=== PATIENT | male | born 1950 | race Caucasian/White ===

== ENCOUNTER 2023-08-17 23:24 | Inpatient (IN) | payer MEDICARE, SELFPAY ==
[2023-08-17] VITALS (11 sets, daily range): BP systolic 53–130; BP diastolic 41–75; PULSE 84–102; BMI 30.6
[2023-08-17 19:45] LABS: % Basophils 0.5 % (0-2); % Eosinophils 0.2 % (0-6); % Immature Granulocytes 0.3 % (0-0.5); % Lymphocytes 35.6 % (20.5-51.1); % Monocytes 18.9 % (1.7-9.3); % Neutrophils 44.5 % (42.2-75.2); Absolute Lymphocytes 2.1 10^3/uL (1.2-3.4); Absolute Monocytes 1.1 10^3/uL (0.1-0.6); Absolute Neutrophils 2.6 10^3/uL (1.4-6.5); Hematocrit 45.8 % (39.0-52.0); Hemoglobin 16.1 g/dL (13.0-18.0); Mean Corp Hgb Conc. 35.2 g/dL (33.0-37.0); Mean Corpuscular Hgb 30.4 pg (27.0-31.0); Mean Corpuscular Volume 86.4 fL (80.0-94.0); Mean Platelet Volume 9.1 fL (7.4-10.4); Nucleated Red Blood Cells % 0 % (-); Platelet Count 270 10^3/uL (130-400); Red Cell Dist. Width 13.8 % (11.5-14.5); White Blood Cell Count 5.9 10^3/uL (4.8-10.8)
[2023-08-17 20:03] LABS: COVID-19 Antigen Negative (Negative)
[2023-08-17] MEDS: NSS 1000 IV (20:06)
[2023-08-17 20:08] LABS: ALT (SGPT) 32 U/L (0-50); AST (SGOT) 34 U/L (17-59); Albumin 4.1 g/dl (3.5-5.0); Alkaline Phosphatase 102 U/L (38-126); Blood Urea Nitrogen 50 mg/dl (9-20); Calcium 8.5 mg/dl (8.4-10.2); Carbon Dioxide 15 mmol/L (22-30); Chloride 106 mmol/L (98-107); Estimated Creatinine Clearance 33 ml/min; Glucose 154 mg/dl (70-99); Lipase 65 U/L (23-300); Potassium 3.3 mmol/L (3.5-5.1); Sodium 134 mmol/L (135-145); Total Bilirubin 0.7 mg/dl (0.2-1.3); Total Protein 7.3 g/dl (6.3-8.2)
[2023-08-17 20:43] LABS: Troponin I 0.014 ng/ml
--- NOTE | 2023-08-17 22:11 | ED.GENMED ---
History of Present Illness
General
Chief Complaint: Breathing Problem
Source: patient and spouse
Time Seen by Provider: 08/17/23 19:31
Travel History
Have you had any contact with someone who has COVID-19?: No
Do you have any symptoms of coronavirus? Fever > 100 degrees, chills, cough, shortness of breath, sore throat, loss of taste or smell, muscle aches, or headache?: Yes
Symptoms:: SOB
History of Present Illness
History of Present Illness:
This is 73-year-old male presents feeling weak, lightheaded and short of breath with exertion. The patient admits that he started Monday night late with vomiting. He vomited throughout the night and the next day. He then progressed to diarrhea.
His vomiting has since resolved but he continues to have cramping and diarrhea. The patient states he now feels weak and short of breath when he exerts himself. Resting in bed he overall feels well with the exception of some abdominal cramping.
No melena or hematochezia. Patient does also mention that he has had some pain down his left arm. Few weeks ago he had pain in his neck but seem to go away. Now he has pain down his left arm in certain positions. He has a history of multiple
myeloma and is now scheduled for an MRI upcoming in August. No motor weakness. No chest pain.
Past History
Past History
ED Past Medical History: HTN, Hypercholesterolemia, NIDDM and Other (Multiple myeloma with bone marrow transplant)
ED Past Surgical History: Cholecystectomy and Other (Bone marrow transplant)
Social History
Tobacco: Non-smoker
Alcohol: None
Drug: None
Personal:
Living: with family
Employment: Retired
Phy Exam
Physical Exam
Physical Exam:
CONSTITUTIONAL Patient alert and oriented to person, place and time. Well-appearing. Vital signs reviewed.
HEAD atraumatic, normocephalic.
EYES eyelids normal to inspection, Extraocular muscles intact, Conjunctiva normal, Sclera normal.
NECK normal range of motion, Trachea midline, no jugular venous distention.
RESPIRATORY CHEST No respiratory distress noted, Chest expansion equal, Bilateral breath sounds clear.
CARDIOVASCULAR regular rate and rhythm, Heart sounds normal.
ABDOMEN abdomen nontender, Bowel sounds normal. No distention.
BACK normal inspection, no obvious deformities
UPPER EXTREMITY range of motion normal, Motor strength normal, no cyanosis, no edema.
LOWER EXTREMITY range of motion normal, Motor strength normal, no cyanosis, no edema.
NEURO Speech normal, No focal motor deficits, Danielle coma scale 15, Memory normal, Cranial Nerves intact to screening exam.
SKIN skin warm, dry, and normal in color.
.
Scores
Heart Failure Risk
Heart Failure Risk Score: Not Applicable
Course
Orders/Labs/Results
Orders:
Orders
08/17/23 19:04
Electrocardiogram (*1) Urgent
Reason for Study: Shortness of Breath
EKG- Treatment ONCE
08/17/23 19:34
CBC/With Diff [Complete Blood Count/With Diff] Urgent
CMP [Comprehensive Metabolic Panel] Urgent
COVID-19 Antigen Urgent
Source: Nasal Swab
Lipase Urgent
Influenza A+B Rapid Molecular Urgent
GETACHEW Source: Nasal Swab
Specimen Description:
08/17/23 19:35
CR Chest - 2 Views Urgent
Comment:
Reason For Exam: sob
08/17/23 19:51
Cervical Spine 4 or 5 Vw [CR Cervical Spine 4 Or 5 Vw] Urgent
Comment:
Reason For Exam: neck pain, h/o MM
08/17/23 20:01
0.9% Sodium Chloride 1000 ml [Nss] 1,000 ml IV BOLUS
08/17/23 20:07
Troponin I Urgent
08/17/23 22:11
STOOL [C difficile Antigen & Toxins] Urgent
GETACHEW Source: Feces/Stool
Specimen Description:
Stool Culture Urgent
GETACHEW Source: Feces/Stool
Specimen Description:
Stool For WBC Urgent
GETACHEW Source: Feces/Stool
Specimen Description:
08/17/23 22:37
0.9% Sodium Chloride 500 ml [Nss] 500 ml IV BOLUS
08/17/23 22:46
Dicyclomine [Bentyl] 20 mg PO NOW STA
Abnormal Lab Results
08/17/23
19:34
Absolute Monos (auto) 1.1 H 10^3/uL
(0.1-0.6)
Monocytes % 18.9 H %
(1.7-9.3)
Sodium 134 L mmol/L
(135-145)
Potassium 3.3 L mmol/L
(3.5-5.1)
Carbon Dioxide 15 L mmol/L
(22-30)
BUN 50 H mg/dl
(9-20)
Creatinine 2.5 H mg/dL
(0.7-1.3)
Glucose 154 H mg/dl
(70-99)
08/17/23 19:34
08/17/23 19:34
Vital Signs
Initial and Last Documented VS:
Initial Vital Signs
Temp Pulse Resp BP
98.1 F 92 20 82/56
08/17/23 18:59 08/17/23 18:59 08/17/23 18:59 08/17/23 18:59
Last Documented Vital Signs
Temp Pulse Resp BP Pulse Ox
98.1 F 80 18 114/73 97
08/17/23 18:59 08/17/23 22:15 08/17/23 22:15 08/17/23 22:00 08/17/23 22:15
MDM/Problems Addressed
MDM/Problems Addressed:
Vomiting, diarrhea, severe dehydration, acute renal failure, orthostatic hypotension
*Radiology
Radiology exam reviewed: preliminary read by ED provider (No obvious pneumonia) and radiology read reviewed
*Pulse Oximetry
Patient hypoxic: no
*EKG
Interpreted by ED Provider?: Yes
Rate: normal
Rhythm: sinus
[place]: normal axis
Ischemia: non-specific ST changes
*Independent Insurance Adjuster Interpretation
Rate: normal
Interpretation: normal
Rhythm: sinus
*Critical Care Note
Total Time (30-74mins, 75-104mins- exclusive of procedures): Not Applicable
Data Reviewed
Source: patient and spouse
Further Testing Considered But Not Given:
Consider CT of the abdomen but suspect viral source. Check stool cultures if he is able to provide
Patient Management
Discussion with other providers: Hospitalist
Escalation/DeEscalation of care consider admission/obs:
73-year-old male presents with vomiting diarrhea. Found to have acute renal failure. Clearly and severely orthostatic. Check stool cultures when he is able to provide. Continue IV fluids. Admit
ED Attending Note
-
Portions of this chart may have been created with voice recognition software.� Occasional wrong word or��sound alike� substitutions may have occurred due to the inherent limitations of voice recognition software.
Discharge Plan
Departure
Patient Disposition: Admit
Date of Disposition: 08/17/23
Time of Disposition: 22:12
Admit to: Med/Surg
Presentation/result/management discussed w/ accepting MD/DO: Hospitalist
Discharge Problem:
Severe dehydration, Acute renal failure
Prescriptions:
No Action
metoprolol succinate 100 MG tablet extended release 24 hr
100 mg PO BID
cyanocobalamin (vitamin B-12) 1,000 MCG tablet
2,500 mcg PO DAILY
cholecalciferol (vitamin D3) [Vitamin D3] 2,000 UNIT capsule
2,000 unit PO DAILY
[place] 3-6-9 1,200 MG capsule
1,200 mg PO BID
simvastatin 20 MG tablet
20 mg PO HS
valsartan 160 MG tablet
160 mg PO DAILY
insulin aspart U-100 [Novolog FlexPen U-100 Insulin] 100 unit/mL (3 mL) Insulin Pen
20 unit SC AC Qty: 0
insulin glargine [Basaglar KwikPen U-100 Insulin] 100 UNIT/ML insulin pen
44 unit SC HS
multivitamin 1 EACH tablet
1 ea PO DAILY
methimazole 5 mg Tablet
5 mg PO BID
spironolactone 25 mg Tablet
25 mg PO DAILY 30 Days Qty: 30 0RF
Eliquis 5 mg Tablet
5 mg PO BID 30 Days Qty: 60 0RF
Victoza 2-Flavio 0.6 mg/0.1 mL (18 mg/3 mL) Pen Injector
1.8 mg SC HS
pantoprazole 40 mg tablet,delayed release (DR/EC)
40 mg PO DAILY
furosemide [Lasix] 20 mg tablet
20 mg PO Q48H
Referrals:
Alan Singh MD [Family Provider] -
Interventions
Interventions:
*Risk Screen - Suicide Last Done: 08/17/23 19:30
*General Assessment Last Done: 08/17/23 18:59
*Neglect/Abuse Screening Last Done: 08/17/23 19:30
ED- Fall Risk Assessment Last Done: 08/17/23 19:30
*ED COVID-19 Vaccine History Last Done: 08/17/23 18:59
ED- Cardiac Assessment Last Done: 08/17/23 19:30
ED- Pulmonary Assessment Last Done: 08/17/23 19:30
--- NOTE | 2023-08-17 22:37 | HPS.HSE ---
Family Physician
-
Family Physician: Alan Singh
Chief Complaint
-
acute V/D
History of Present Illness
73M HX chr HFpEF, nl RFTs a/w acute V/D fpr ;ast 2 days. NEG home Covid Ag. No melena or hematochezia.
Medical History
Past Medical History
Past Medical History: Reports Arrhythmia (Prx AF ), CHF (chr HfpEF ), HTN, Hyperthyroidism and IDDM
Past Surgical History: Reports Cholecystectomy
Social History
Tobacco: Non-smoker
Alcohol: None
Personal:
Living: With Family
Family History
Family History: Not pertinent
Allergies / Home Medications
Allergies reflects when Allergies were last updated in [facility].
Home Medications with original date entered in [facility]
Allergy/Medication List:
Allergies
Allergy/AdvReac Type Severity Reaction Status Date / Time
No Known Allergies Allergy Verified 08/17/23 19:03
Home Medications
cholecalciferol (vitamin D3) 50 mcg (2,000 unit) capsule (Vitamin D3) 2,000 unit PO DAILY Supplement 06/22/17
cyanocobalamin (vitamin B-12) 1,000 mcg tablet 2,500 mcg PO DAILY Supplement 06/22/17
fish, borage, flaxseed oils-omega 3,6,9 comb no.1 1,200 mg capsule ([place] 3-6-9) 1,200 mg PO BID Supplement 06/22/17
metoprolol succinate 100 mg tablet,extended release 24 hr 100 mg PO BID Blood pressure 06/22/17
simvastatin 20 mg tablet 20 mg PO HS High cholesterol 07/30/18
insulin aspart U-100 100 unit/mL (3 mL) subcutaneous pen (Novolog FlexPen U-100 Insulin aspart) 20 unit SC AC Diabetes ##0 03/08/21
insulin glargine 100 unit/mL (3 mL) subcutaneous pen (Basaglar KwikPen U-100 Insulin) 44 unit SC HS Diabetes 03/08/21
multivitamin 1 ea PO DAILY Supplement 03/08/21
valsartan 160 mg tablet 160 mg PO DAILY Blood pressure 03/08/21
methimazole 5 mg tablet 5 mg PO BID Thyroid 04/03/22
apixaban 5 mg tablet (Eliquis) 5 mg PO BID 30 days #60 tabs 04/05/22
spironolactone 25 mg tablet 25 mg PO DAILY 30 days #30 tabs 04/05/22
liraglutide 0.6 mg/0.1 mL (18 mg/3 mL) subcutaneous pen injector (Victoza 2-Flavio) 1.8 mg SC HS 09/26/22
furosemide 20 mg tablet (Lasix) 20 mg PO Q48H 08/17/23
pantoprazole 40 mg tablet,delayed release 40 mg PO DAILY 08/17/23
Review of Systems
-
Constitutional: Reports No Symptoms
EENT: Reports No Symptoms
Respiratory: Reports No Symptoms
Cardiac: Reports No Symptoms
Abdomen/GI: Reports Vomiting and Diarrhea
: Reports No Symptoms
Musculoskeletal: Reports No Symptoms
Skin: Reports No Symptoms
Neurological: Reports No Symptoms
Endocrine: Reports No Symptoms
Hematologic/Lymphatic: Reports No Symptoms
Psych: Reports No Symptoms
Physical Exam
Vital Signs
Vital Signs
Temp Pulse Resp BP Pulse Ox
98.1 F 80 18 114/73 97
08/17/23 18:59 08/17/23 22:15 08/17/23 22:15 08/17/23 22:00 08/17/23 22:15
Physical Exam
General: Other (see below )
Laboratory Results
-
08/17/23 19:34
08/17/23 19:34
Laboratory Results
Total Bilirubin 0.7 mg/dl (0.2-1.3) 08/17/23 19:34
AST 34 U/L (17-59) 08/17/23 19:34
ALT 32 U/L (0-50) 08/17/23 19:34
Alkaline Phosphatase 102 U/L (38-126) 08/17/23 19:34
Troponin I 0.014 ng/ml 08/17/23 20:07
Lipase 65 U/L (23-300) 08/17/23 19:34
Data Reviewed
-
CT Scan: Report Reviewed by me
Medical Tests (Nuc Med, Echo, EKG etc): Report Reviewed by me
Lab Data: Labs Reviewed by me
Old Records: Reviewed
Impression/Plan
-
Reviewed VS: Afebrile. Mildly hypotensive 108/70. Tachycardic 100
PE
Gen: not toxic looking
HEENT: anictaric
Neck: supple , no JVD
Lungs: CTA
Cor: ST, S1 S2
Abdomen: abdomen nontender, Bowel sounds normal. No distention.
HEALTH SAFETY MANAGER: AAO3 , No focal motor deficits,
MS: no edema
Psych: appropriate
Data
Unremarkable CBC
Na 134
K 3.3
CO2 15 - AG metabolic acidosis at 13
BUN 15
Cr 2.5 -baseline Cr 0.7 on 10/15/22
eGFR 27
nl LFTs
nl Lipase
BG 140 -> 154
NEG TPNI
NEG Covid Ag
EKG report
NORMAL SINUS RHYTHM
MINIMAL VOLTAGE CRITERIA FOR LVH, MAY BE NORMAL VARIANT ( R in aVL )
NONSPECIFIC ST AND T WAVE ABNORMALITY
ABNORMAL ECG
WHEN COMPARED WITH ECG OF 15-OCT-2022 22:47,
NONSPECIFIC T WAVE ABNORMALITY NOW EVIDENT IN LATERAL LEADS
08/17/23 CXR
No acute cardiopulmonary process.
08/17/23 Cx spine XR
Chronic advanced degenerative changes of the cervical spine.
12/23/22 TTE
LV ejection fraction is 60%
Normal diastolic function.
Mild mitral regurgitation.
Last admission 04/03/22 - 04/05/22 DIAGNOSIS:
1. Atrial fibrillation rapid ventricular rate.
2. Acute on chronic heart failure preserved ejection fraction.
ASSESSMENT & PLAN
Acute vomiting and diarrhea suspect acute GE - viral vs bacterila
Severe dehydration with severe hy[povolemia
Asso. TERESA
Asso. AG metabolic acidosis at 13 due to Bicarb GI dirrheal loss
- Held Frusemide , Held spironolactone , Held valsartan
- Avoid IV contrast and NSAIDs
- s/p NS WO bolus
- cont. Fluid resuscitation with NS @ 100/H
- trend BMP daily
- stool for Noro virus
- stool for C Diff
- stool Cx
At risk for hypoglycemia due to significant drop in GFR
IDDM
- cont. 50% of PHYSICAL THERAPIST CENTER MANAGER Lantus
- cont 50 % PHYSICAL THERAPIST CENTER MANAGER Aspart
- add ISS low
Hypokalemia
Underlying TERESA
- cont NS and trend K
HX CHF - chr HFpEF per ECHO
- Held Frusemide , Held spironolactone , Held valsartan due to TERESA
- Trend IOs , weights, Lytes
HX Parox Afib
- on Toprol XL 100mg BID - hold if SBP < 105
- on PHYSICAL THERAPIST CENTER MANAGER Eliquis.
Hyperthyroidism
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
- on Tapazole 5mg BID
Essential HTN
- Holding Aldactone/ARB and lasix.
HLD on statin - cont.
HX MM in remission after stem cell transplant
- OP scheduled for an MRI upcoming in August
DVT ppx: eliquis
Code: Full
IP TLM
[2023-08-17] MEDS: NSS 500 IV (22:43)
[2023-08-17] MEDS: BENTYL 20 MG PO (22:49)
[2023-08-18] VITALS (11 sets, daily range): BP systolic 97–142; BP diastolic 48–80; BMI 30.2
[2023-08-18] MEDS: NSS 1000 IV (01:51)
[2023-08-18] MEDS: TYLENOL 650 MG PO ×2 (02:31→09:45)
--- NOTE | 2023-08-18 04:38 | PTCARENOTE ---
PT IS AAOX3, NO C/O PAIN. PT REPORTS HE HAS BEEN HAVING DIARRHEA. STOOL SAMPLES PENDING. PT IS PLACED ON TELE. ORIENTED TO ROOM W/ CALL ALEGRIA IN REACH.
[2023-08-18 07:20] LABS: Glucose - Point of Care 144 mg/dl (70-99)
[2023-08-18 07:56] LABS: Hematocrit 40.1 % (39.0-52.0); Hemoglobin 14.4 g/dL (13.0-18.0); Mean Corp Hgb Conc. 35.9 g/dL (33.0-37.0); Mean Corpuscular Volume 86.4 fL (80.0-94.0); Mean Platelet Volume 9.1 fL (7.4-10.4); Platelet Count 212 10^3/uL (130-400); Red Blood Cell Count 4.64 10^6/uL (4.70-6.10); Red Cell Dist. Width 13.9 % (11.5-14.5); White Blood Cell Count 5.1 10^3/uL (4.8-10.8)
[2023-08-18 08:15] LABS: Blood Urea Nitrogen 46 mg/dl (9-20); Calcium 7.8 mg/dl (8.4-10.2); Carbon Dioxide 15 mmol/L (22-30); Chloride 114 mmol/L (98-107); Estimated Creatinine Clearance 48 ml/min; Glucose 140 mg/dl (70-99); Potassium 3.6 mmol/L (3.5-5.1); Sodium 137 mmol/L (135-145); eGFR 42.57
[2023-08-18] MEDS: NOVOLOG FLEXPEN-LOW RESISTANCE SC (08:24)
[2023-08-18] MEDS: ELIQUIS 5 MG PO ×2 (08:26→20:15)
[2023-08-18] MEDS: TAPAZOLE 5 MG PO ×2 (08:31→20:15)
[2023-08-18] MEDS: TOPROL XL 100 MG PO ×2 (08:31→20:15)
--- NOTE | 2023-08-18 08:37 | W.PN.HOSP.TC ---
Today's Communication/Plan
-
see outlined plan
Assessment / Plan
Assessment / Plan
Assessment:
nausea/vomiting/diarrhea/cramping
- suspect viral GE, but will check stool studies for bacterial causes
- prn pain control, Bentyl, Zofran
- full liquids - ADAT to LRD @ dinner if tolerated
Severe dehydration manifesting with pre-renal TERESA and metabolic acidosis
Hyponatremia
- continue IVF; now switch to Bicarb infusion
- monitor Cr, currently improved from 2.5 to 1.7
- holding home nephrotoxic agents
IDDM
- continue SSI
- continue RACING MECHANIC Aspart/Lantus at 50% of dose, later will titrate back up to home dosing
- holding Victoza
- A1c: pending
Hypokalemia from diarrhea/vomiting
- replete with PO and monitor BMP
Chronic HFpEF
Essential HTN
- monitor volume status through weights, I/Os
- holding Lasix/ARB/Aldactone - resume as renal function allows
Parox A,fib
- continue Toprol XL BID and Eliquis
Hyperthyroidism
- continue Tapazole, followed at [facility]
HLD - statin
Hx of MM in remission after SC transplant
- follow up OP Oncology
DVT ppx: Eliquis
Code: Full
Anticipated Discharge: > 48 hours
Subjective/Interval History
-
Date of Service: August 18, 2023
some diarrhea persists but nausea/vomiting/cramps improving
no fever/chills
on full liquid diet currently
Objective Data
-
Labs:
Laboratory Results
08/18/23
07:28
WBC 5.1
Hgb 14.4
Hct 40.1
Plt Count 212 D
Sodium 137
Potassium 3.6
Chloride 114 H
Carbon Dioxide 15 L
BUN 46 H
Creatinine 1.7 H
Glucose 140 H
Calcium 7.8 L
Vital Signs:
Vital Signs
Temp Pulse Resp BP Pulse Ox
97.4 F 84 18 114/67 96
08/18/23 08:14 08/18/23 08:14 08/18/23 08:14 08/18/23 08:14 08/18/23 08:14
I&O
08/17/23 08/18/23 08/19/23
06:59 06:59 06:59
Intake Total 1460 / 1460
Balance 1460 / 1460
Physical Exam
-
General: Well Developed and Well Nourished
HEENT: Normocephalic and Atraumatic
Respiratory: Negative Wheezes or Rales
Cardiac: Regular Rhythm and S1/S2
GI: Soft
Genito-urinary: No Costovertebral Tender
Neuro: AO x 3
Psych: Calm
Data Reviewed
-
Total Time Spent with Patient (in minutes): 47
Labs: Labs Reviewed by me
[2023-08-18] MEDS: NOVOLOG FLEXPEN SC (08:46)
[2023-08-18 08:56] LABS: Glycohemoglobin (HgbA1c) 8.6 % (4.0-5.6)
[2023-08-18] MEDS: SODIUM BICARBONATE 1150 MEQ IV (09:41)
[2023-08-18 11:45] LABS: Glucose - Point of Care 207 mg/dl (70-99)
[2023-08-18] MEDS: NOVOLOG FLEXPEN 10 UNITS SC ×2 (12:28→17:10)
[2023-08-18] MEDS: NOVOLOG FLEXPEN-LOW RESISTANCE 2 UNITS SC (12:29)
--- NOTE | 2023-08-18 15:09 | CM ---
CM following re: d/c planning
Chart reviewed
CM met with the patient & his spouse at bedside; IA completed
Pt states he resides in a 1SH with no KENYA
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
Pt has no past hx of VN/SNF but does have a r/w & spc for use as needed
Pt confirms prescription coverage and rx's are filled at [facility] on [address]
Pt PCP-Dr. Alan Singh
Pt has no skilled needs identified as PT/OT not warranted
Pt anticipates d/c home when stable
PLAN; d/c home no needs anticipated
[2023-08-18 16:35] LABS: Glucose - Point of Care 151 mg/dl (70-99)
[2023-08-18] MEDS: NOVOLOG FLEXPEN-LOW RESISTANCE 1 UNITS SC (17:22)
[2023-08-18] MEDS: LIPITOR 10 MG PO (20:19)
[2023-08-18 21:29] LABS: Glucose - Point of Care 131 mg/dl (70-99)
[2023-08-18] MEDS: LANTUS 0.220000000000000001 UNITS SC (21:35)
[2023-08-19] MEDS: SODIUM BICARBONATE 1150 MEQ IV (00:34)
[2023-08-19] MEDS: TYLENOL 650 MG PO (00:34)
[2023-08-19 03:45] VITALS: BP 114/71
[2023-08-19 05:53] VITALS: BMI 30.2
[2023-08-19 07:11] LABS: Glucose - Point of Care 123 mg/dl (70-99)
[2023-08-19 07:32] LABS: Hematocrit 35.9 % (39.0-52.0); Mean Corp Hgb Conc. 36.2 g/dL (33.0-37.0); Mean Corpuscular Hgb 30.4 pg (27.0-31.0); Mean Corpuscular Volume 84.1 fL (80.0-94.0); Platelet Count 187 10^3/uL (130-400); Red Blood Cell Count 4.27 10^6/uL (4.70-6.10); Red Cell Dist. Width 13.6 % (11.5-14.5); White Blood Cell Count 3.5 10^3/uL (4.8-10.8)
[2023-08-19 07:53] VITALS: BP 116/72
[2023-08-19 08:10] LABS: Blood Urea Nitrogen 30 mg/dl (9-20); Calcium 7.8 mg/dl (8.4-10.2); Chloride 111 mmol/L (98-107); Estimated Creatinine Clearance 90 ml/min; Glucose 131 mg/dl (70-99); Sodium 137 mmol/L (135-145); eGFR > 60.00
[2023-08-19 08:31] LABS: Carbon Dioxide 19 mmol/L (22-30); Potassium 2.7 mmol/L (3.5-5.1)
[2023-08-19] MEDS: TAPAZOLE 5 MG PO (08:37)
[2023-08-19] MEDS: TOPROL XL 100 MG PO (08:37)
[2023-08-19] MEDS: NOVOLOG FLEXPEN-LOW RESISTANCE SC (08:37)
[2023-08-19] MEDS: ELIQUIS 5 MG PO (08:37)
[2023-08-19] MEDS: NOVOLOG FLEXPEN 10 UNITS SC ×2 (08:38→12:40)
--- NOTE | 2023-08-19 08:52 | PTCARENOTE ---
Made Dr. Miller aware of pt's critical potassium level of 2.[address] Miller is going to put in orders for potassium.
--- NOTE | 2023-08-19 09:06 | W.PN.HOSP.TC ---
Today's Communication/Plan
-
dc home
Assessment / Plan
Assessment / Plan
Assessment:
nausea/vomiting/diarrhea/cramping
- suspect viral GE
- stool studies NGTD
- prn pain control
- tolerated LRD
Severe dehydration manifesting with pre-renal TERESA and metabolic acidosis
Hyponatremia
- s/p NSS and later bicarb infusion
- monitor Cr, currently improved from 2.5 to 1.7 to 0.9
IDDM
- continue SSI
- continue PROMOTION PRODUCER Aspart/Lantus at 50% of dose, later will titrate back up to home dosing
- holding Victoza
- A1c: 8.6%
Hypokalemia from diarrhea/vomiting
- replete with PO and IV rider
- also effect of holding ARB/Aldactone
- repeat BMP next week
Chronic HFpEF
Essential HTN
- monitor volume status through weights, I/Os
- resume Aldactone today, ARB tomorrow, Lasix Monday
- repeat BMP next week
Parox A,fib
- continue Toprol XL BID and Eliquis
Hyperthyroidism
- continue Tapazole, followed at [facility]
HLD - statin
Hx of MM in remission after SC transplant
- follow up OP Oncology
DVT ppx: Eliquis
Code: Full
More than 30 minutes spent in discharge including
Final examination of the patient
Summarizing hospital stay
Instructions for continuing care to all relevant caregivers
Preparation of discharge records, prescriptions, and referral forms
Total time spent (in minutes): 45
Anticipated Discharge: Today
Subjective/Interval History
-
Date of Service: August 19, 2023
stools less liquid, but not yet formed
tolerating diets
Objective Data
-
Labs:
Laboratory Results
08/19/23
06:54
WBC 3.5 L
Hgb 13.0
Hct 35.9 L
Plt Count 187
Sodium 137
Potassium 2.7 L*
Chloride 111 H
Carbon Dioxide 19 L
BUN 30 H
Creatinine 0.9
Glucose 131 H
Calcium 7.8 L
Vital Signs:
Vital Signs
Temp Pulse Resp BP Pulse Ox
98.1 F 72 16 116/72 97
08/19/23 07:53 08/19/23 08:37 08/19/23 07:53 08/19/23 08:37 08/19/23 07:53
I&O
08/18/23 08/19/23 08/20/23
06:59 06:59 06:59
Intake Total 1460 / 1460 2340 / 2340
Balance 1460 / 1460 2340 / 2340
Physical Exam
-
General: No Apparent Distress
HEENT: Normocephalic and Atraumatic
Respiratory: Negative Wheezes or Rales
Cardiac: Regular Rhythm and S1/S2
GI: Soft
Genito-urinary: No Costovertebral Tender
Neuro: AO x 3
Hematologic / Lymphatic: No Lymphadenopathy
Psych: Calm
Data Reviewed
-
Total Time Spent with Patient (in minutes): 45
Labs: Labs Reviewed by me
--- NOTE | 2023-08-19 09:23 | W.DS.TRANS ---
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
-
Discharge Instructions:
Sleep Apnea Risk Intermediate
Discharge Diagnosis/Procedures viral diarrhea with TERESA, hypokalemia
Diet Low Residue
Additional Diets for 5 days then resume usual diet
Activity As tolerated
Bathing Restrictions None
Blood Work repeat BMP next week prior to PCP appointment -
slip given
Instructions:
Stand-Alone Forms:
Changes to Home Medications: No
Discharge Medications:
DC Medications w/original date entered in [facility]
cholecalciferol (vitamin D3) 50 mcg (2,000 unit) capsule (Vitamin D3) 2,000 unit PO DAILY Supplement 06/22/17
cyanocobalamin (vitamin B-12) 1,000 mcg tablet 2,500 mcg PO DAILY Supplement 06/22/17
fish, borage, flaxseed oils-omega 3,6,9 comb no.1 1,200 mg capsule ([place] 3-6-9) 1,200 mg PO BID Supplement 06/22/17
metoprolol succinate 100 mg tablet,extended release 24 hr 100 mg PO BID Blood pressure 06/22/17
simvastatin 20 mg tablet 20 mg PO HS High cholesterol 07/30/18
insulin aspart U-100 100 unit/mL (3 mL) subcutaneous pen (Novolog FlexPen U-100 Insulin aspart) 20 unit SC AC Diabetes ##0 03/08/21
insulin glargine 100 unit/mL (3 mL) subcutaneous pen (Basaglar KwikPen U-100 Insulin) 44 unit SC HS Diabetes 03/08/21
multivitamin 1 ea PO DAILY Supplement 03/08/21
valsartan 160 mg tablet 160 mg PO DAILY Blood pressure 03/08/21
methimazole 5 mg tablet 5 mg PO BID Thyroid 04/03/22
apixaban 5 mg tablet (Eliquis) 5 mg PO BID 30 days #60 tabs 04/05/22
spironolactone 25 mg tablet 25 mg PO DAILY 30 days #30 tabs 04/05/22
liraglutide 0.6 mg/0.1 mL (18 mg/3 mL) subcutaneous pen injector (Victoza 2-Flavio) 1.8 mg SC HS Diabetes 09/26/22
furosemide 20 mg tablet (Lasix) 20 mg PO Q48H Fluid Retention/Swelling 08/17/23
pantoprazole 40 mg tablet,delayed release 40 mg PO DAILY Gastrointestinal Issue 08/17/23
Home Medication Changes
Pending Results: No
Total time spent discharging patient (in min): 45
[2023-08-19] MEDS: KCL 40 MEQ PO (10:41)
[2023-08-19] MEDS: ALDACTONE 25 MG PO (10:41)
[2023-08-19] MEDS: KCL 270 MEQ IV (10:43)
[2023-08-19 11:37] LABS: Glucose - Point of Care 181 mg/dl (70-99)
[2023-08-19 11:49] VITALS: BP 125/72
[2023-08-19] MEDS: NOVOLOG FLEXPEN-LOW RESISTANCE 1 UNITS SC (12:40)
--- NOTE | 2023-08-19 12:53 | CM ---
Met with patient and his at the bedside
IMM explained and signed
will provide transport home
Plan: discharge to home without services
== END 2023-08-19 15:30 | disposition home or self-care (01) | DRG 392 ==
LOC: 4 EAST ACU 23:24
PROVIDERS: ADMITTING PHYSICIAN Internal Medicine; ATTENDING PHYSICIAN Internal Medicine; EMERGENCY PHYSICIAN Emergency Medicine; FAMILY PHYSICIAN Internal Medicine
DX: A08.4 Viral intestinal infection, unspecified (principal); N17.9 Acute kidney failure, unspecified; C90.01 Multiple myeloma in remission; E87.20 Acidosis, unspecified; I50.32 Chronic diastolic (congestive) heart failure; E87.1 Hypo-osmolality and hyponatremia; I11.0 Hypertensive heart disease with heart failure; I48.0 Paroxysmal atrial fibrillation; E05.90 Thyrotoxicosis, unspecified without thyrotoxic crisis or storm; E11.9 Type 2 diabetes mellitus without complications; Z79.4 Long term (current) use of insulin; Z90.49 Acquired absence of other specified parts of digestive tract; E86.0 Dehydration; E87.6 Hypokalemia; E78.00 Pure hypercholesterolemia, unspecified
CPT/HCPCS: 71046; 72050; 80048; 80053; 82962; 83036; 83690; 84484; 85025; 85027; 87045; 87046; 87324; 87427; 87449; 87502; 87798; 87811; 89055; 93005; 96360; 96361; 99285

== ENCOUNTER 2023-09-15 16:44 | Observation (INO) | payer MEDICARE, SELFPAY ==
[2023-09-15] VITALS (10 sets, daily range): BP systolic 120–194; BP diastolic 70–107; BMI 31.5; BMI 31.0
[2023-09-15 11:53] LABS: % Basophils 0.6 % (0-2); % Eosinophils 0.7 % (0-6); % Immature Granulocytes 0.3 % (0-0.5); % Lymphocytes 18.2 % (20.5-51.1); % Monocytes 6.4 % (1.7-9.3); % Neutrophils 73.8 % (42.2-75.2); Absolute Eosinophils 0.1 10^3/uL (0-0.7); Absolute Lymphocytes 1.3 10^3/uL (1.2-3.4); Absolute Monocytes 0.5 10^3/uL (0.1-0.6); Absolute Neutrophils 5.2 10^3/uL (1.4-6.5); Hematocrit 36.4 % (39.0-52.0); Mean Corp Hgb Conc. 35.7 g/dL (33.0-37.0); Mean Corpuscular Hgb 30.2 pg (27.0-31.0); Mean Corpuscular Volume 84.7 fL (80.0-94.0); Mean Platelet Volume 8.7 fL (7.4-10.4); Nucleated Red Blood Cells % 0 % (-); Platelet Count 240 10^3/uL (130-400); Red Cell Dist. Width 13.8 % (11.5-14.5)
[2023-09-15 12:20] LABS: ALT (SGPT) 22 U/L (0-50); AST (SGOT) 29 U/L (17-59); Albumin 3.9 g/dl (3.5-5.0); Alkaline Phosphatase 147 U/L (38-126); Blood Urea Nitrogen 14 mg/dl (9-20); Carbon Dioxide 22 mmol/L (22-30); Chloride 102 mmol/L (98-107); Estimated Creatinine Clearance > 125 ml/min; Glucose 299 mg/dl (70-99); Lipase 52 U/L (23-300); Potassium 3.3 mmol/L (3.5-5.1); Sodium 135 mmol/L (135-145); Total Bilirubin 1.3 mg/dl (0.2-1.3); Total Protein 6.8 g/dl (6.3-8.2); eGFR > 60.00
--- NOTE | 2023-09-15 12:58 | ED.GENMED ---
History of Present Illness
General
Chief Complaint: Abdominal Symptoms
Source: patient
Exam Limitations: none
Time Seen by Provider: 09/15/23 11:05
Nursing documentation reviewed up to this point in time: agreed with
Travel History
Have you had any contact with someone who has COVID-19?: No
Do you have any symptoms of coronavirus? Fever > 100 degrees, chills, cough, shortness of breath, sore throat, loss of taste or smell, muscle aches, or headache?: No
History of Present Illness
History of Present Illness:
73-year-old male with history of A-fib on Eliquis, IDDM, CHF, HTN, HLD, cardiac ablation 10/06, hyperthyroidism, multiple myeloma with stem cell transplant 2015, cholecystectomy presents stating he started his first dose of Ozempic 1 mg yesterday at
11 PM (Medicare no longer covered his Victoza) and at 3a.m. he became queasy and his blood sugar started dropping, got as low as 120 which is low for him, he took orange juice and candy which helped his blood sugar but started repeatedly vomiting,
he has had a dry heaves for the past 5 hours.
Denies abdominal pain, fever, diarrhea. He is retching currently
Past History
Past History
ED Past Medical History: HTN, Hypercholesterolemia, NIDDM and Other (Multiple myeloma with bone marrow transplant)
ED Past Surgical History: Cholecystectomy and Other (Bone marrow transplant)
Social History
Tobacco: Non-smoker
Alcohol: None
Drug: None
Personal:
Living: with family
Employment: Retired
Review of Systems
Review of Systems
Allergies reviewed?: Yes
All Other Systems: ROS reviewed and negative except as documented in HPI and ROS
Constitutional: Denies fever
Respiratory: Denies trouble breathing
Cardiac: Denies chest pain
ABD/GI: Reports nausea and vomiting; Denies abdominal pain or diarrhea
Musculoskeletal: Denies edema
Skin: Reports no symptoms
Neurological: Reports no symptoms
Phy Exam
Physical Exam
Physical Exam:
GENERAL: Currently retching, A&Ox3.
CONSTITUTIONAL: Afebrile.
RESPIRATORY: Regular respirations, nonlabored, lungs clear.
CARDIOVASCULAR: Regular rate and rhythm, no murmurs, no rubs.
GI: Soft, nontender, normal BS
MUSCULOSKELETAL: Moves with ease. Well perfused.
SKIN: Warm, dry, pink
PSYCH: Normal mood and affect. Well kept, interactive and appropriate
NEUROLOGIC: Awake, alert and oriented. No focal neurological deficits
Course
Orders/Labs/Results
Orders:
Orders
09/15/23 10:23
EKG [Electrocardiogram (*1)] Urgent
Reason for Study: Tachycardia
09/15/23 10:24
EKG- Treatment ONCE
09/15/23 11:34
Complete Blood Count/With Diff Urgent
Comprehensive Metabolic Panel Urgent
Lipase Urgent
09/15/23 13:12
0.9% Sodium Chloride 1000 ml [Nss] 1,000 ml IV BOLUS
Ondansetron Injectable [Zofran] 4 mg IV NOW STA
09/15/23 16:06
Ondansetron Injectable [Zofran] 4 mg IV NOW STA
09/15/23 16:15
0.9% Sodium Chloride 1000 ml [Nss] 1,000 ml IV 125 mls/hr
09/15/23 16:34
Metoprolol [Lopressor] 5 mg IV NOW STA
Abnormal Lab Results
09/15/23
11:34
RBC 4.30 L 10^6/uL
(4.70-6.10)
Hct 36.4 L %
(39.0-52.0)
Lymphocytes % 18.2 L %
(20.5-51.1)
Potassium 3.3 L mmol/L
(3.5-5.1)
Creatinine 0.6 L mg/dL
(0.7-1.3)
Glucose 299 H mg/dl
(70-99)
Alkaline Phosphatase 147 H U/L
(38-126)
09/15/23 11:34
09/15/23 11:34
Vital Signs
Initial and Last Documented VS:
Initial Vital Signs
Temp Pulse Resp BP Pulse Ox
98.4 F 130 18 150/102 99
09/15/23 10:20 09/15/23 10:20 09/15/23 10:20 09/15/23 10:20 09/15/23 10:20
Last Documented Vital Signs
Temp Pulse Resp BP Pulse Ox
98.4 F 120 13 194/107 95
09/15/23 10:20 09/15/23 15:04 09/15/23 15:04 09/15/23 16:11 09/15/23 16:12
MDM/Problems Addressed
Differential Diagnosis Includes:
Side effect from Victoza, dehydration
MDM/Problems Addressed:
73-year-old male with history of A-fib on Eliquis, IDDM, CHF, HTN, HLD, cardiac ablation 10/06, hyperthyroidism, multiple myeloma with stem cell transplant 2015, cholecystectomy presents stating he started his first dose of Ozempic 1 mg yesterday at
11 PM (Medicare no longer covered his Victoza) and at 3a.m. he became queasy and his blood sugar started dropping, got as low as 120 which is low for him, he took orange juice and candy which helped his blood sugar but started repeatedly vomiting,
he has had a dry heaves for the past 5 hours.
Denies abdominal pain, fever, diarrhea. He is retching currently
EKG: Sinus tachycardia
09/15/2023 1206 PM
CBC CMP with no clinically significant abnormality
Lipase within normal limits
09/15/2023 1453 PM
After IV fluids and Zofran IV, patient is feeling much better, no further vomiting but still nauseous and cannot eat or drink.
Prescription for Zofran sent to his pharmacy
He will discuss stopping the Ozempic with his primary doctor on Monday (2 days)
09/15/2023 1604 PM
Called to the driver operator Dr. Gray who recommended a sliding scale as long as patient cannot tolerate p.o. intake
Recommended continuing his at bedtime glargine insulin
As I was reviewing discharge instructions patient voicing concern about the fact that he cannot eat, at bedside becomes tearful and is afraid to take patient home because she is afraid she will not be able to handle him if something should go
wrong
It is reasonable to admit patient for intractable nausea and vomiting in a diabetic patient.
Hospitalist notified of admission.
Blood glucose on pt monitor now 247. Pt actively retching and vomiting.
Chronic conditions affecting care: DM, HTN, CAD and Arrhythmia
*EKG
EKG Intrepretation Date: 09/15/23
Interpretation: abnormal
Rate: tachycardiac
Rhythm: sinus
[place]: normal axis
Interval: normal interval
QRS Pattern: normal QRS
Ischemia: no ischemia
*Critical Care Note
Total Time (30-74mins, 75-104mins- exclusive of procedures): Not Applicable
ED Attending Note
-
Portions of this chart may have been created with voice recognition software.� Occasional wrong word or��sound alike� substitutions may have occurred due to the inherent limitations of voice recognition software.
Discharge Plan
Departure
Patient Disposition: Admit
Date of Disposition: 09/15/23
Time of Disposition: 15:01
Admit to: Med/Surg
Presentation/result/management discussed w/ accepting MD/DO: Hospitalist
Patient with high blood pressure during this ER visit?: No
Condition: Fair
Discharge Problem:
Intractable vomiting with nausea, Diabetic acidosis, type II
Instructions: Clear Liquid Diet, Nausea and Vomiting, Adult (DC)
Prescriptions:
New
ondansetron 4 mg tablet,disintegrating
4 mg PO Q6H PRN (Reason: nausea and vomiting) Qty: 14 0RF
No Action
metoprolol succinate 100 MG tablet extended release 24 hr
100 mg PO BID
[place] 3-6-9 1,200 MG capsule
1,200 mg PO BID
simvastatin 20 MG tablet
20 mg PO HS
valsartan 160 MG tablet
160 mg PO DAILY
insulin aspart U-100 [Novolog FlexPen U-100 Insulin] 100 unit/mL (3 mL) Insulin Pen
28 unit SC AC Qty: 0
insulin glargine [Basaglar KwikPen U-100 Insulin] 100 UNIT/ML insulin pen
44 unit SC HS
methimazole 5 mg Tablet
5 mg PO BID
spironolactone 25 mg Tablet
25 mg PO DAILY 30 Days Qty: 30 0RF
Eliquis 5 mg Tablet
5 mg PO BID 30 Days Qty: 60 0RF
pantoprazole 40 mg tablet,delayed release (DR/EC)
40 mg PO DAILY
furosemide [Lasix] 20 mg tablet
20 mg PO Q48H@0800
Theragen Tablet
1 tab PO DAILY
diphenhydramine-acetaminophen [Tylenol PM Extra Strength] 25-500 mg Tablet
2 tab PO HS PRN (Reason: sleep)
ciclopirox 0.77 % Cream
1 applic TOPICAL BID PRN (Reason: apply to bottom of B/L feet)
Ozempic 1 mg/dose (4 mg/3 mL) Pen Injector
1 mg SC TH@2200
Patient Comments:
cholecalciferol (vitamin D3) 50 mcg (2,000 unit) Tablet
50 mcg PO DAILY
cyanocobalamin (vitamin B-12) 2,500 mcg Tablet
2,500 mcg PO DAILY
Referrals:
Alan Singh MD [Family Provider] - Call in 1-3 days for appt
Interventions
Interventions:
*Risk Screen - Suicide Last Done: 09/15/23 10:20
*General Assessment Last Done: 09/15/23 10:20
*Neglect/Abuse Screening Last Done: 09/15/23 10:20
ED- Fall Risk Assessment Last Done: 09/15/23 11:15
*ED COVID-19 Vaccine History Last Done: 09/15/23 11:15
YA-Etkukg-Gbilztknwv Assessment Last Done: 09/15/23 11:15
[2023-09-15] MEDS: ZOFRAN 4 MG IV ×3 (13:18→23:15)
[2023-09-15] MEDS: NSS 1000 IV ×2 (13:18→16:10)
--- NOTE | 2023-09-15 16:09 | HPS.HSE ---
Addendum entered and electronically signed by Guanako Bains MD 09/15/23 17:04:
I have personally seen and examined the patient, and agree with the plan of care as documented by KELSEY Swenson.
73-year-old male with past medical history of atrial fibrillation on Eliquis, type 2 diabetes, hypertension, CHF, hyperthyroidism, and multiple myeloma presents with intractable nausea and vomiting since starting Ozempic last night. Patient denies
abdominal pain, but he has been having diffuse nausea and vomiting. He has been unable to keep down any food, liquids, or his medications.
His potassium 3.3, heart rate in the 120s, blood pressure 194/107.
Will give IV fluids with potassium chloride, IV Lopressor, IV Vasotec.
He has been counseled to permanently stop Ozempic.
He is on Eliquis. Will give therapeutic Lovenox until he can tolerate p.o.
Advance care planning discussed, patient is a full code.
All other issues as outlined by the advanced care practitioner.
Total time spent to see the patient on the floor, examine the patient, review data and lab results, discuss treatment plan with patient, nursing staff around 75 minutes.
Original Note:
Family Physician
-
Family Physician: Alan Singh
Chief Complaint
-
n/v
History of Present Illness
73-year-old male with history of A-fib on Eliquis, IDDM, CHF, HTN, HLD, cardiac ablation 10/06, hyperthyroidism, multiple myeloma with stem cell transplant 2016, cholecystectomy presents stating he started his first dose of Ozempic 1 mg yesterday at
11 PM. his Victoza was stopped yesterday as medicate does not cover anymore. around 3 am, he noted blood sugar in 120, took orange juice and chocolate. patient started vomiting since then. denied abdominal pain, diarrhea.denied fever, chills, chest
pain, sob. denied NICHOLE, dizzy or syncopal episode. denied dysuria or hematuria.
admitting for further management. received Zofran in ER. received normal saline 2l in ER. admitting for further management.
Medical History
Past Medical History
Past Medical History: Reports Other
Additional Past Medical History:
atrial fib
DM
CHF
HTN
HLD
hyperthyroidism
multiple myeloma
Past Surgical History: Reports Other
Additional Past Surgical History:
stem cell transplant
cardiac ablation
Social History
Tobacco: Non-smoker
Alcohol: None
Drug: None
Personal:
Living: With Family
Family History
Family History: Not pertinent
Allergies / Home Medications
Allergies reflects when Allergies were last updated in [employer].
Home Medications with original date entered in [employer]
Allergy/Medication List:
Allergies
Allergy/AdvReac Type Severity Reaction Status Date / Time
No Known Allergies Allergy Verified 09/15/23 10:20
Home Medications
fish, borage, flaxseed oils-omega 3,6,9 comb no.1 1,200 mg capsule ([place] 3-6-9) 1,200 mg PO BID Supplement 06/22/17
metoprolol succinate 100 mg tablet,extended release 24 hr 100 mg PO BID Blood pressure 06/22/17
simvastatin 20 mg tablet 20 mg PO HS High cholesterol 07/30/18
insulin aspart U-100 100 unit/mL (3 mL) subcutaneous pen (Novolog FlexPen U-100 Insulin aspart) 28 unit SC AC Diabetes ##0 03/08/21
insulin glargine 100 unit/mL (3 mL) subcutaneous pen (Basaglar KwikPen U-100 Insulin) 44 unit SC HS Diabetes 03/08/21
valsartan 160 mg tablet 160 mg PO DAILY Blood pressure 03/08/21
methimazole 5 mg tablet 5 mg PO BID Thyroid 04/03/22
apixaban 5 mg tablet (Eliquis) 5 mg PO BID 30 days #60 tabs 04/05/22
spironolactone 25 mg tablet 25 mg PO DAILY 30 days #30 tabs 04/05/22
furosemide 20 mg tablet (Lasix) 20 mg PO Q48H@0800 Fluid Retention/Swelling 08/17/23
pantoprazole 40 mg tablet,delayed release 40 mg PO DAILY Gastrointestinal Issue 08/17/23
cholecalciferol (vitamin D3) 50 mcg (2,000 unit) tablet 50 mcg PO DAILY 09/15/23
ciclopirox 0.77 % topical cream 1 applic topical BID PRN apply to bottom of B/L feet 09/15/23
cyanocobalamin (vitamin B-12) 2,500 mcg tablet 2,500 mcg PO DAILY 09/15/23
diphenhydramine 25 mg-acetaminophen 500 mg tablet (Tylenol PM Extra Strength) 2 tab PO HS PRN sleep 09/15/23
ondansetron 4 mg disintegrating tablet 4 mg PO Q6H PRN nausea and vomiting #14 tabs 09/15/23
semaglutide 1 mg/dose (4 mg/3 mL) subcutaneous pen injector (Ozempic) 1 mg SC TH@2200 09/15/23
therapeutic multivitamin 1 tab PO DAILY 09/15/23
Review of Systems
-
Constitutional: Reports No Symptoms
EENT: Reports No Symptoms
Respiratory: Reports No Symptoms
Cardiac: Reports No Symptoms
Abdomen/GI: Reports No Symptoms, Nausea and Vomiting
: Reports No Symptoms
Musculoskeletal: Reports No Symptoms
Skin: Reports No Symptoms
Neurological: Reports No Symptoms
Endocrine: Reports No Symptoms
Hematologic/Lymphatic: Reports No Symptoms
Psych: Reports No Symptoms
Physical Exam
Vital Signs
Vital Signs
Temp Pulse Resp BP Pulse Ox
98.4 F 123 13 153/83 94
09/15/23 10:20 09/15/23 14:32 09/15/23 13:15 09/15/23 14:00 09/15/23 13:49
Physical Exam
General: Well Developed, Well Nourished and No Apparent Distress
HEENT: NormoCephalic, Moist mucous membranes and Atraumatic
Respiratory: Clear
Cardiac: Tachycardia; No Murmur or Rub
GI: Soft, Non Tender, Non Distended and Normal Bowel Sounds; No Organomegaly
Rectal: Deferred by Provider
Musculoskeletal: No Clubbing, No Cyanosis and No Edema
Skin: No Rash
Neuro: AO x 3 and Nonfocal/grossly intact
Psych: Calm
Laboratory Results
-
09/15/23 11:34
09/15/23 11:34
Laboratory Results
Total Bilirubin 1.3 mg/dl (0.2-1.3) 09/15/23 11:34
AST 29 U/L (17-59) 09/15/23 11:34
ALT 22 U/L (0-50) 09/15/23 11:34
Alkaline Phosphatase 147 U/L (38-126) H 09/15/23 11:34
Lipase 52 U/L (23-300) 09/15/23 11:34
Data Reviewed
-
Lab Data: Labs Reviewed by me
Impression/Plan
-
# Intractable nausea and vomiting likely from Ozempic use
-Zofran as needed for nausea vomiting
-Maintain n.p.o., advance diet as tolerated.
-Fluids continued for hydration
# Hypokalemia likely from nausea vomiting
-K3.3
-Normal saline with 20 of KCl
-Monitor BMP in a.m.
# Type 2 diabetes with hyperglycemia
-Blood sugar elevated in 200s
-Sliding scale
-Glargine 22 units at bedtime
# Hypertension/tachycardia likely from not able to tolerate his medications
-Blood pressure elevated
-Heart rate in 120s
-EKG with tachycardia
-Will give dose of metoprolol in ER
-Continue to monitor vital signs
-Valsartan continued
#Chronic HFpEF
- monitor volume status through weights, I/Os
-Hold diuretics
#Parox A,fib
-Metoprolol 5 mg IV every 6 hours
-Eliquis continued
-EKG sinus tachycardia
# GERD
-IV PPI
#Hyperthyroidism
- continue Tapazole, followed at [facility]
#HLD - statin
#Hx of MM in remission after SC transplant
- follow up OP Oncology
#DVT ppx: Eliquis
Code: Full
[2023-09-15] MEDS: LOPRESSOR 5 MG IV ×2 (16:40→23:08)
[2023-09-15] MEDS: VASOTEC 0.625 MG IV ×2 (17:12→23:09)
[2023-09-15 18:22] LABS: Glucose - Point of Care 220 mg/dl (70-99)
[2023-09-15] MEDS: NSS with KCL 20 MEQ 1000 IV (18:32)
[2023-09-15] MEDS: COMPAZINE 5 MG IV (18:36)
[2023-09-15] MEDS: TAPAZOLE 5 MG PO (20:43)
[2023-09-15] MEDS: LOVENOX 100 MG SC (20:44)
[2023-09-15 21:24] LABS: Glucose - Point of Care 201 mg/dl (70-99)
[2023-09-15] MEDS: BENADRYL IV (21:24)
[2023-09-15] MEDS: LANTUS 0.220000000000000001 UNITS SC (21:25)
[2023-09-15] MEDS: BENADRYL 25 MG IV (23:07)
[2023-09-16 03:31] VITALS: BP 142/97
[2023-09-16 04:43] LABS: Glucose - Point of Care 143 mg/dl (70-99)
[2023-09-16] MEDS: LOPRESSOR 5 MG IV ×2 (05:52→12:59)
[2023-09-16] MEDS: VASOTEC 0.625 MG IV ×2 (05:54→12:58)
[2023-09-16 07:00] VITALS: BP 138/87; BMI 31.0
--- NOTE | 2023-09-16 07:49 | W.PN.HOSP.TC ---
Today's Communication/Plan
-
Advance to diabetic diet for lunch
Discharge if tolerating diabetic diet
Assessment / Plan
Assessment / Plan
# Intractable nausea and vomiting likely from Ozempic use
Counseled patient to permanently discontinue Ozempic
Vomiting has resolved, patient tolerated full liquids
Advance to diabetic diet for lunch
Discharge if tolerating diabetic diet
# Hypokalemia likely from nausea vomiting
Potassium 3.3 today, give an additional 40 mill equivalents p.o. x 1
Repeat BMP with PCP in 1 week
# Type 2 diabetes with hyperglycemia
Continue home insulin regimen
# Hypertension/tachycardia likely from not able to tolerate his medications
He has been getting IV metoprolol and IV Vasotec while in the hospital due to vomiting
He can resume his home metoprolol and home blood pressure medications upon discharge
#Chronic HFpEF
Resume Lasix upon discharge
#Parox A,fib
Resume metoprolol upon discharge
Continue Eliquis
# GERD
-PPI
#Hyperthyroidism
- continue methimazole, followed at [facility]
#HLD - statin
#Hx of MM in remission after SC transplant
- follow up OP Oncology
DVT ppx: Eliquis
Code: Full
Physical Exam
General: Obese, no acute distress
HEENT: Normocephalic, Atraumatic, EOMI, MMM
Respiratory: Clear to Auscultation bilaterally
Cardiac: Normal S1/S2, Regular Rate and Rhythm
GI: Soft, Nontender, Nondistended, Normal Bowel Sounds
Extremities: No Clubbing, Cyanosis, or Edema
Neuro: Nonfocal/Grossly Intact
Psych: Calm, Cooperative
Derm: No Visible lesions
Anticipated Discharge: Today
Subjective/Interval History
-
Date of Service: September 16, 2023
Vomiting resolved. His last episode of vomiting was 8 PM last night. He tolerated full liquids this morning. No abdominal pain. He feels well, wishes to go home.
Objective Data
-
Labs:
Laboratory Results
09/16/23
06:00
WBC Pending
Hgb Pending
Hct Pending
Plt Count Pending
Sodium Pending
Potassium Pending
Chloride Pending
Carbon Dioxide Pending
BUN Pending
Creatinine Pending
Glucose Pending
Calcium Pending
Vital Signs:
Vital Signs
Temp Pulse Resp BP Pulse Ox
98.9 F 97 18 158/93 95
09/16/23 03:31 09/16/23 05:54 09/16/23 03:31 09/16/23 05:54 09/16/23 03:31
I&O
09/15/23 09/16/23 09/17/23
06:59 06:59 06:59
Intake Total 240 / 240
Balance 240 / 240
[2023-09-16] MEDS: NSS (PRESERVATIVE FREE) 10 ML IV (07:59)
[2023-09-16] MEDS: TYLENOL 650 MG PO (07:59)
[2023-09-16] MEDS: LOVENOX 100 MG SC (08:00)
[2023-09-16] MEDS: PROTONIX IV 40 MG IV (08:00)
[2023-09-16] MEDS: TAPAZOLE 5 MG PO (08:00)
[2023-09-16] MEDS: NSS with KCL 20 MEQ 1000 IV (08:01)
[2023-09-16 08:03] LABS: Glucose - Point of Care 152 mg/dl (70-99)
[2023-09-16 08:50] LABS: Hematocrit 33.9 % (39.0-52.0); Hemoglobin 12.1 g/dL (13.0-18.0); Mean Corp Hgb Conc. 35.7 g/dL (33.0-37.0); Mean Corpuscular Hgb 30.5 pg (27.0-31.0); Mean Corpuscular Volume 85.4 fL (80.0-94.0); Mean Platelet Volume 8.6 fL (7.4-10.4); Platelet Count 238 10^3/uL (130-400); Red Blood Cell Count 3.97 10^6/uL (4.70-6.10); Red Cell Dist. Width 14.2 % (11.5-14.5); White Blood Cell Count 5.3 10^3/uL (4.8-10.8)
[2023-09-16 09:30] LABS: Blood Urea Nitrogen 11 mg/dl (9-20); Calcium 8.5 mg/dl (8.4-10.2); Carbon Dioxide 28 mmol/L (22-30); Chloride 105 mmol/L (98-107); Estimated Creatinine Clearance > 125 ml/min; Glucose 147 mg/dl (70-99); Potassium 3.3 mmol/L (3.5-5.1); Sodium 138 mmol/L (135-145); eGFR > 60.00
[2023-09-16] MEDS: NOVOLOG FLEXPEN-LOW RESISTANCE 1 UNITS SC ×2 (09:37→12:01)
[2023-09-16] MEDS: KCL 40 MEQ PO (10:33)
--- NOTE | 2023-09-16 10:36 | CARDSERVLU ---
Echocardiogram with [facility] completed after protocol screening completed. Allergies verified.
Patent IV site:
IV site flushed with 0.9% NaCl pre and post administration.
Diluted bolus method utilized to enhance visualization of ventricular courtney.
Total volume given: ____ mL
Patient tolerated all procedures well without complications.
--- NOTE | 2023-09-16 10:36 | CM ---
Patient seen bedside with spouse.
IA completed.
patient lives with spouse in rancher style home with no steps to enter.
patient independent prior to admission without assistive devices.
patient drives.
No VN or skilled in the past.
Patient denies home care needs.
FERNANDES completed.
PCP: Dr Alan Singh
Pharmacy: [facility]
Plan: home no needs.
[2023-09-16 11:00] VITALS: BP 142/84
--- NOTE | 2023-09-16 11:12 | PTCARENOTE ---
Assumed care of pt from previous nurse. Pt denies pain. pt tolerated full liquid diet, advanced, if tolerates per MD may be dc'd. Pt is on tele running sinus tachy. Pt with no n/v. Pt call valdez is within reach, pt rings chucky. will cont to monitor.
[2023-09-16 12:00] LABS: Glucose - Point of Care 193 mg/dl (70-99)
[2023-09-16] MEDS: TOPROL XL 100 MG PO (14:38)
[2023-09-16 15:50] VITALS: BP 153/102
--- NOTE | 2023-09-16 16:39 | PTCARENOTE ---
Pt dc'd to home with , taken to 's car via w/c, tele and iv removed, paperwork reviewed and copy provided.
--- NOTE | 2023-09-16 18:28 | W.DCSUMMARY ---
Discharge Summary
Discharge Data
Date of Admission: 09/15/23
Date of Discharge: 09/16/23
-
Pending Results: No
Hospital Course
Discharge diagnosis:
Adverse reaction to Ozempic
Intractable nausea and vomiting
Hypokalemia
Type 2 diabetes with hyperglycemia
Paroxysmal atrial fibrillation
Essential hypertension
Chronic heart failure with preserved ejection fraction
Hyperthyroidism
History of multiple myeloma in remission after stem cell transplant
Hospital course:
73-year-old male with a past medical history of atrial fibrillation on Eliquis, type 2 diabetes, hypertension, CHF, hyperthyroidism, and multiple myeloma status post stem cell transplant presents with intractable nausea and vomiting since starting
Ozempic the night prior to admission.� Patient denies abdominal pain, but he has been having diffuse nausea and vomiting.� He has been unable to keep down any food, liquids, or his medications.
Patient received supportive care with IV fluids, antiemetics, IV pantoprazole, bowel rest.
Patient had hypokalemia, this was repleted.
Patient had hypertension and atrial fibrillation. He could not tolerate oral medications. He received IV metoprolol, IV Vasotec, and therapeutic Lovenox while in the hospital.
By the following day, his vomiting resolved. He tolerated a full liquid diet, and was advanced to solids. He tolerated his solids. Patient is medically stable for discharge. He can resume his oral blood pressure medications and Eliquis upon
discharge.
He has been counseled to permanently discontinue Ozempic. He needs to follow-up with endocrinology for an alternative, as well as his primary care doctor 1 week.
Disposition: Home self-care
Discharge planning: Required 34 minutes
Discharge Plan
-
Patient Disposition: Home (Routine Discharge)
Discharge Diagnosis/Procedures: Adverse reaction to Ozempic, type 2 diabetes, hypokalemia
Condition: Good
Diet: Diabetic, Carb Controlled
Activity: As tolerated
Driving Restrictions: As prior to admission
Blood Work: BMP with your PCP in 1 week
Activity Restrictions/Additional Instructions:
Please permanently stop Ozempic.
Follow-up with your usual mounter automatic for an alternative.
Follow-up with your primary care doctor in 1 week.
Referrals:
Alan Singh MD [Family Provider] - in one week
Prescriptions:
New
ondansetron 4 mg tablet,disintegrating
4 mg PO Q6H PRN (Reason: nausea and vomiting) Qty: 14 0RF
fish,bora,flax oils-om3,6,9no1 [[place] 3-6-9 Complex] 400-400-400 mg capsule
1 cap PO BID Qty: 60 0RF
Continued
metoprolol succinate 100 MG tablet extended release 24 hr
100 mg PO BID
simvastatin 20 MG tablet
20 mg PO HS
valsartan 160 MG tablet
160 mg PO DAILY
insulin aspart U-100 [Novolog FlexPen U-100 Insulin] 100 unit/mL (3 mL) Insulin Pen
28 unit SC AC Qty: 0
insulin glargine [Basaglar KwikPen U-100 Insulin] 100 UNIT/ML insulin pen
44 unit SC HS
methimazole 5 mg Tablet
5 mg PO BID
spironolactone 25 mg Tablet
25 mg PO DAILY 30 Days Qty: 30 0RF
Eliquis 5 mg Tablet
5 mg PO BID 30 Days Qty: 60 0RF
pantoprazole 40 mg tablet,delayed release (DR/EC)
40 mg PO DAILY
furosemide [Lasix] 20 mg tablet
20 mg PO Q48H@0800
therapeutic multivitamin Tablet
1 tab PO DAILY
diphenhydramine-acetaminophen [Tylenol PM Extra Strength] 25-500 mg Tablet
2 tab PO HS PRN (Reason: sleep)
ciclopirox 0.77 % Cream
1 applic TOPICAL BID PRN (Reason: apply to bottom of B/L feet)
cholecalciferol (vitamin D3) 50 mcg (2,000 unit) Tablet
50 mcg PO DAILY
cyanocobalamin (vitamin B-12) 2,500 mcg Tablet
2,500 mcg PO DAILY
Discontinued
[place] 3-6-9 1,200 MG capsule
1,200 mg PO BID
Ozempic 1 mg/dose (4 mg/3 mL) Pen Injector
1 mg SC TH@2200
Patient Comments:
Discharge Orders:
Discharge Patient (As Directed); Ordered 09/16/23
Ordered By: Guanako Bains
Discharge Date and Time
Discharge Date/Time: 09/16/23 16:15
== END 2023-09-16 16:15 | disposition home or self-care (01) ==
LOC: 4 WEST ACU 16:44
PROVIDERS: Registered Nurse; ADMITTING PHYSICIAN Family Medicine; EMERGENCY PHYSICIAN Emergency Medicine; FAMILY PHYSICIAN Internal Medicine
DX: R11.2 Nausea with vomiting, unspecified (principal); R10.9 Unspecified abdominal pain; T50.995A Adverse effect of other drugs, medicaments and biological substances, initial encounter; Y92.9 Unspecified place or not applicable; C90.01 Multiple myeloma in remission; I11.0 Hypertensive heart disease with heart failure; I48.0 Paroxysmal atrial fibrillation; E78.5 Hyperlipidemia, unspecified; E11.65 Type 2 diabetes mellitus with hyperglycemia; R00.0 Tachycardia, unspecified; E05.90 Thyrotoxicosis, unspecified without thyrotoxic crisis or storm; E87.20 Acidosis, unspecified; E87.6 Hypokalemia; I50.32 Chronic diastolic (congestive) heart failure; K21.9 Gastro-esophageal reflux disease without esophagitis; Z79.01 Long term (current) use of anticoagulants; Z94.84 Stem cells transplant status; Z79.4 Long term (current) use of insulin; Z79.85 Long-term (current) use of injectable non-insulin antidiabetic drugs
CPT/HCPCS: 80048; 80053; 82962; 83690; 85025; 85027; 87070; 93005; 96361; 96374; 96376; 99285; G0378

== ENCOUNTER → 2023-10-10 07:40 | Outpatient (REF) | payer MEDICARE, SELFPAY ==
[2023-10-10 13:39] LABS: Free T4 1.24 ng/dl (0.78-2.19)
[2023-10-10 13:53] LABS: TSH < 0.02 uIU/ml (0.47-4.68)
[2023-10-11 11:51] LABS: Thyroglobulin Antibodies <0.9 IU/mL (0.0-4.0); Thyroid Peroxidase Ab (TPO) 3.1 IU/mL (0.0-9.0)
== END ==
LOC: HWLAB 07:40
PROVIDERS: ATTENDING PHYSICIAN Internal Medicine Endocrinology, Diabetes & Metabolism; FAMILY PHYSICIAN Internal Medicine
DX: E03.9 Hypothyroidism, unspecified (principal)
CPT/HCPCS: 36415; 84439; 84443; 86376; 86800

== ENCOUNTER → 2024-04-09 07:20 | Outpatient (REF) | payer MEDICARE, SELFPAY ==
[2024-04-09 09:43] LABS: Hematocrit 35.7 % (39.0-52.0); Hemoglobin 12.4 g/dL (13.0-18.0); Mean Corp Hgb Conc. 34.7 g/dL (33.0-37.0); Mean Corpuscular Hgb 32.4 pg (27.0-31.0); Mean Corpuscular Volume 93.2 fL (80.0-94.0); Mean Platelet Volume 9.1 fL (7.4-10.4); Platelet Count 227 10^3/uL (130-400); Red Blood Cell Count 3.83 10^6/uL (4.70-6.10); Red Cell Dist. Width 14.3 % (11.5-14.5); White Blood Cell Count 5.9 10^3/uL (4.8-10.8)
[2024-04-09 10:04] LABS: ALT (SGPT) 29 U/L (0-50); AST (SGOT) 33 U/L (17-59); Albumin 3.7 g/dl (3.5-5.0); Alkaline Phosphatase 123 U/L (38-126); Blood Urea Nitrogen 23 mg/dl (9-20); Carbon Dioxide 27 mmol/L (22-30); Chloride 104 mmol/L (98-107); Glucose 186 mg/dl (70-99); Potassium 3.8 mmol/L (3.5-5.1); Sodium 143 mmol/L (135-145); Total Bilirubin 0.7 mg/dl (0.2-1.3); Total Protein 6.2 g/dl (6.3-8.2); eGFR > 60.00
[2024-04-09 10:23] LABS: Free T3 2.87 pg/ml (2.77-5.27); Free T4 0.53 ng/dl (0.78-2.19)
== END ==
LOC: HWLAB 07:20
PROVIDERS: ATTENDING PHYSICIAN Internal Medicine Endocrinology, Diabetes & Metabolism; FAMILY PHYSICIAN Internal Medicine
DX: E05.90 Thyrotoxicosis, unspecified without thyrotoxic crisis or storm (principal)
CPT/HCPCS: 36415; 80053; 84439; 84443; 84481; 85027

== ENCOUNTER → 2024-05-10 07:36 | Outpatient (REF) | payer MEDICARE, SELFPAY ==
[2024-05-10 09:40] LABS: Hematocrit 37.5 % (39.0-52.0); Hemoglobin 13.3 g/dL (13.0-18.0); Mean Corp Hgb Conc. 35.5 g/dL (33.0-37.0); Mean Corpuscular Hgb 32.5 pg (27.0-31.0); Mean Corpuscular Volume 91.7 fL (80.0-94.0); Mean Platelet Volume 9.1 fL (7.4-10.4); Platelet Count 224 10^3/uL (130-400); Red Blood Cell Count 4.09 10^6/uL (4.70-6.10); Red Cell Dist. Width 13.2 % (11.5-14.5); White Blood Cell Count 5.8 10^3/uL (4.8-10.8)
[2024-05-10 09:50] LABS: ALT (SGPT) 44 U/L (0-50); AST (SGOT) 43 U/L (17-59); Alkaline Phosphatase 146 U/L (38-126); Blood Urea Nitrogen 19 mg/dl (9-20); Calcium 9.2 mg/dl (8.4-10.2); Carbon Dioxide 27 mmol/L (22-30); Chloride 103 mmol/L (98-107); Glucose 203 mg/dl (70-99); Potassium 3.8 mmol/L (3.5-5.1); Sodium 141 mmol/L (135-145); Total Bilirubin 0.8 mg/dl (0.2-1.3); Total Protein 6.6 g/dl (6.3-8.2); eGFR > 60.00
[2024-05-10 10:08] LABS: Free T3 3.14 pg/ml (2.77-5.27); Free T4 0.88 ng/dl (0.78-2.19)
[2024-05-10 10:21] LABS: TSH 4.18 uIU/ml (0.47-4.68)
== END ==
LOC: HWLAB 07:36
PROVIDERS: ATTENDING PHYSICIAN Internal Medicine Endocrinology, Diabetes & Metabolism; FAMILY PHYSICIAN Internal Medicine
DX: E05.90 Thyrotoxicosis, unspecified without thyrotoxic crisis or storm (principal)
CPT/HCPCS: 36415; 80053; 84439; 84443; 84481; 85027

== ENCOUNTER → 2024-06-28 07:23 | Outpatient (REF) | payer MEDICARE, SELFPAY ==
[2024-06-28 10:04] LABS: % Basophils 0.9 % (0-2); % Eosinophils 5.5 % (0-6); % Immature Granulocytes 0.2 % (0-0.5); % Lymphocytes 35.5 % (20.5-51.1); % Monocytes 7.9 % (1.7-9.3); Absolute Basophils 0.1 10^3/uL (0-0.2); Absolute Eosinophils 0.3 10^3/uL (0-0.7); Absolute Lymphocytes 1.9 10^3/uL (1.2-3.4); Absolute Monocytes 0.4 10^3/uL (0.1-0.6); Absolute Neutrophils 2.7 10^3/uL (1.4-6.5); Hematocrit 37.8 % (39.0-52.0); Mean Corp Hgb Conc. 34.4 g/dL (33.0-37.0); Mean Corpuscular Hgb 31.4 pg (27.0-31.0); Mean Corpuscular Volume 91.3 fL (80.0-94.0); Mean Platelet Volume 9.1 fL (7.4-10.4); Nucleated Red Blood Cells % 0 % (-); Platelet Count 202 10^3/uL (130-400); Red Blood Cell Count 4.14 10^6/uL (4.70-6.10); Red Cell Dist. Width 13.3 % (11.5-14.5); White Blood Cell Count 5.4 10^3/uL (4.8-10.8)
[2024-06-28 10:19] LABS: ALT (SGPT) 25 U/L (0-50); AST (SGOT) 26 U/L (17-59); Albumin 3.9 g/dl (3.5-5.0); Alkaline Phosphatase 115 U/L (38-126); Blood Urea Nitrogen 24 mg/dl (9-20); Calcium 8.6 mg/dl (8.4-10.2); Carbon Dioxide 28 mmol/L (22-30); Chloride 102 mmol/L (98-107); Glucose 249 mg/dl (70-99); HDL Cholesterol 55 mg/dl; LDL Cholesterol, Calculated 51 mg/dl; Potassium 3.7 mmol/L (3.5-5.1); Sodium 139 mmol/L (135-145); Total Bilirubin 0.7 mg/dl (0.2-1.3); Total Cholesterol 156 mg/dl (50-199); Total Protein 6.5 g/dl (6.3-8.2); Triglyceride 254 mg/dl (10-149); Very Low Density Lipoprotein 50 mg/dl (0-30); eGFR > 60.00
[2024-06-28 10:27] LABS: Free T4 0.99 ng/dl (0.78-2.19)
[2024-06-28 10:41] LABS: PSA, Total - Screen 4.53 ng/ml (0.0-4.0); TSH 1.19 uIU/ml (0.47-4.68)
[2024-06-28 12:38] LABS: Microalbumin, Random Urine 2.2 mg/dl (0.6-1.7); Microalbumin/creatinine Ratio 11.2 mg/g
== END ==
LOC: HWLAB 07:23
PROVIDERS: ATTENDING PHYSICIAN Internal Medicine
DX: E11.65 Type 2 diabetes mellitus with hyperglycemia (principal); Z79.4 Long term (current) use of insulin; I10 Essential (primary) hypertension; Z12.5 Encounter for screening for malignant neoplasm of prostate
CPT/HCPCS: 36415; 80053; 80061; 82043; 82570; 83036; 84439; 84443; 85025; G0103

== ENCOUNTER → 2024-08-22 09:40 | Outpatient (REF) | payer MEDICARE, SELFPAY ==
[2024-08-22 12:13] LABS: Hematocrit 37.4 % (39.0-52.0); Mean Corp Hgb Conc. 34.8 g/dL (33.0-37.0); Mean Corpuscular Hgb 30.7 pg (27.0-31.0); Mean Corpuscular Volume 88.2 fL (80.0-94.0); Mean Platelet Volume 8.8 fL (7.4-10.4); Platelet Count 221 10^3/uL (130-400); Red Blood Cell Count 4.24 10^6/uL (4.70-6.10); Red Cell Dist. Width 13.2 % (11.5-14.5); White Blood Cell Count 3.7 10^3/uL (4.8-10.8)
[2024-08-22 12:26] LABS: ALT (SGPT) 29 U/L (0-50); AST (SGOT) 33 U/L (17-59); Alkaline Phosphatase 91 U/L (38-126); Blood Urea Nitrogen 16 mg/dl (9-20); Calcium 9.1 mg/dl (8.4-10.2); Carbon Dioxide 32 mmol/L (22-30); Chloride 98 mmol/L (98-107); Glucose 177 mg/dl (70-99); Potassium 3.8 mmol/L (3.5-5.1); Sodium 137 mmol/L (135-145); Total Bilirubin 1.3 mg/dl (0.2-1.3); Total Protein 6.5 g/dl (6.3-8.2); eGFR > 60.00
[2024-08-22 13:07] LABS: Glycohemoglobin (HgbA1c) 8.3 % (4.0-5.6)
[2024-08-22 13:52] LABS: Free T3 3.46 pg/ml (2.77-5.27); Free T4 1.09 ng/dl (0.78-2.19)
[2024-08-22 14:05] LABS: TSH 0.67 uIU/ml (0.47-4.68)
== END ==
LOC: HWLAB 09:40
PROVIDERS: ATTENDING PHYSICIAN Internal Medicine Endocrinology, Diabetes & Metabolism; FAMILY PHYSICIAN Internal Medicine
DX: E05.90 Thyrotoxicosis, unspecified without thyrotoxic crisis or storm (principal); E11.65 Type 2 diabetes mellitus with hyperglycemia
CPT/HCPCS: 80053; 83036; 84439; 84443; 84481; 85027

== ENCOUNTER → 2024-09-19 09:18 | Outpatient (REF) | payer MEDICARE, SELFPAY | LOC: HWRCS 09:18 | PROVIDERS: ATTENDING PHYSICIAN Internal Medicine Cardiovascular Disease; FAMILY PHYSICIAN Internal Medicine | DX: I50.30 Unspecified diastolic (congestive) heart failure (principal); I48.0 Paroxysmal atrial fibrillation | CPT/HCPCS: 93306 ==

== ENCOUNTER → 2024-12-10 08:56 | Outpatient (REF) | payer MEDICARE, SELFPAY ==
[2024-12-10 12:22] LABS: % Basophils 1.5 % (0-2); % Eosinophils 4.8 % (0-6); % Immature Granulocytes 0.2 % (0-0.5); % Lymphocytes 34.4 % (20.5-51.1); % Neutrophils 50.1 % (42.2-75.2); Absolute Basophils 0.1 10^3/uL (0-0.2); Absolute Eosinophils 0.2 10^3/uL (0-0.7); Absolute Lymphocytes 1.6 10^3/uL (1.2-3.4); Absolute Monocytes 0.4 10^3/uL (0.1-0.6); Absolute Neutrophils 2.3 10^3/uL (1.4-6.5); Hematocrit 34.2 % (39.0-52.0); Hemoglobin 11.9 g/dL (13.0-18.0); Mean Corp Hgb Conc. 34.8 g/dL (33.0-37.0); Mean Corpuscular Hgb 31.8 pg (27.0-31.0); Mean Corpuscular Volume 91.4 fL (80.0-94.0); Mean Platelet Volume 9.2 fL (7.4-10.4); Nucleated Red Blood Cells % 0 % (-); Platelet Count 207 10^3/uL (130-400); Red Blood Cell Count 3.74 10^6/uL (4.70-6.10); Red Cell Dist. Width 13.9 % (11.5-14.5); White Blood Cell Count 4.6 10^3/uL (4.8-10.8)
[2024-12-10 12:43] LABS: ALT (SGPT) 28 U/L (0-50); AST (SGOT) 27 U/L (17-59); Albumin 3.6 g/dl (3.5-5.0); Alkaline Phosphatase 89 U/L (38-126); Blood Urea Nitrogen 20 mg/dl (9-20); Calcium 8.9 mg/dl (8.4-10.2); Carbon Dioxide 28 mmol/L (22-30); Chloride 109 mmol/L (98-107); Glucose 169 mg/dl (70-99); HDL Cholesterol 45 mg/dl; LDL Cholesterol, Calculated 54 mg/dl; Sodium 140 mmol/L (135-145); Total Bilirubin 0.6 mg/dl (0.2-1.3); Total Cholesterol 122 mg/dl (50-199); Total Protein 6.2 g/dl (6.3-8.2); Triglyceride 119 mg/dl (10-149); Very Low Density Lipoprotein 23 mg/dl (0-30); eGFR > 60.00
[2024-12-10 12:52] LABS: Free T4 0.97 ng/dl (0.78-2.19)
[2024-12-10 12:59] LABS: Microalbumin, Random Urine 1.3 mg/dl (0.6-1.7)
[2024-12-10 13:06] LABS: TSH 5.84 uIU/ml (0.47-4.68)
== END ==
LOC: HWLAB 08:56
PROVIDERS: ATTENDING PHYSICIAN Internal Medicine
DX: E11.00 Type 2 diabetes mellitus with hyperosmolarity without nonketotic hyperglycemic-hyperosmolar coma (NKHHC) (principal); I10 Essential (primary) hypertension
CPT/HCPCS: 36415; 80053; 80061; 82043; 82570; 83036; 84439; 84443; 85025

== ENCOUNTER → 2024-12-18 07:15 | Outpatient (REF) | payer MEDICARE, SELFPAY ==
[2024-12-18 11:32] LABS: Free T3 3.59 pg/ml (2.77-5.27)
== END ==
LOC: HWLAB 07:15
PROVIDERS: ATTENDING PHYSICIAN Internal Medicine Endocrinology, Diabetes & Metabolism; FAMILY PHYSICIAN Internal Medicine
DX: E05.90 Thyrotoxicosis, unspecified without thyrotoxic crisis or storm (principal); E11.65 Type 2 diabetes mellitus with hyperglycemia
CPT/HCPCS: 36415; 84481

== ENCOUNTER → 2025-03-24 08:25 | Outpatient (REF) | payer MEDICARE, SELFPAY ==
[2025-03-24 10:07] LABS: Hematocrit 35.1 % (39.0-52.0); Hemoglobin 12.5 g/dL (13.0-18.0); Mean Corp Hgb Conc. 35.6 g/dL (33.0-37.0); Mean Corpuscular Volume 90.0 fL (80.0-94.0); Platelet Count 234 10^3/uL (130-400); Red Cell Dist. Width 13.3 % (11.5-14.5)
[2025-03-24 10:31] LABS: ALT (SGPT) 24 U/L (0-50); AST (SGOT) 24 U/L (17-59); Albumin 3.7 g/dl (3.5-5.0); Alkaline Phosphatase 97 U/L (38-126); Blood Urea Nitrogen 14 mg/dl (9-20); Calcium 9.2 mg/dl (8.4-10.2); Carbon Dioxide 30 mmol/L (22-30); Chloride 105 mmol/L (98-107); Glucose 166 mg/dl (70-99); Potassium 4.0 mmol/L (3.5-5.1); Sodium 138 mmol/L (135-145); Total Protein 6.4 g/dl (6.3-8.2); eGFR > 60.00
[2025-03-24 10:48] LABS: Free T3 3.37 pg/ml (2.77-5.27)
[2025-03-24 10:51] LABS: Glycohemoglobin (HgbA1c) 8.0 % (4.0-5.6)
[2025-03-24 11:02] LABS: TSH 3.82 uIU/ml (0.47-4.68)
== END ==
LOC: HWLAB 08:25
PROVIDERS: ATTENDING PHYSICIAN Internal Medicine Endocrinology, Diabetes & Metabolism; FAMILY PHYSICIAN Internal Medicine
DX: E05.90 Thyrotoxicosis, unspecified without thyrotoxic crisis or storm (principal); E11.65 Type 2 diabetes mellitus with hyperglycemia
CPT/HCPCS: 36415; 80053; 83036; 84439; 84443; 84481; 85027

== ENCOUNTER → 2025-05-06 07:04 | Outpatient (REF) | payer MEDICARE, SELFPAY ==
[2025-05-06 10:46] LABS: Hematocrit 36.3 % (39.0-52.0); Hemoglobin 12.5 g/dL (13.0-18.0); Mean Corp Hgb Conc. 34.4 g/dL (33.0-37.0); Mean Corpuscular Volume 89.9 fL (80.0-94.0); Nucleated Red Blood Cells % 0 % (-); Platelet Count 236 10^3/uL (130-400); Red Cell Dist. Width 13.9 % (11.5-14.5)
[2025-05-06 11:01] LABS: ALT (SGPT) 21 U/L (0-50); AST (SGOT) 28 U/L (17-59); Albumin 3.7 g/dl (3.5-5.0); Alkaline Phosphatase 83 U/L (38-126); Blood Urea Nitrogen 20 mg/dl (9-20); Calcium 8.9 mg/dl (8.4-10.2); Carbon Dioxide 32 mmol/L (22-30); Chloride 103 mmol/L (98-107); Glucose 154 mg/dl (70-99); Iron 51 ug/dl (49-181); Potassium 3.3 mmol/L (3.5-5.1); Sodium 142 mmol/L (135-145); Total Protein 6.3 g/dl (6.3-8.2); eGFR > 60.00
[2025-05-06 11:11] LABS: Total Iron Binding Capacity 392 ug/dl (261-462)
== END ==
LOC: HWLAB 07:04
PROVIDERS: ATTENDING PHYSICIAN Internal Medicine; REFERRING PHYSICIAN Internal Medicine
DX: D64.9 Anemia, unspecified (principal); I10 Essential (primary) hypertension
CPT/HCPCS: 36415; 80053; 83540; 83550; 85025